=== PATIENT | female | born 1960 | race Caucasian/White ===

== ENCOUNTER 2022-07-21 12:24 | Emergency (ER) | payer OTHER ==
[~2022-07-21] VITALS: Ht 165.1 cm; Wt 87.4 kg
[2022-07-21 12:25] VITALS: BP 142/76
[2022-07-21] MEDS ORDERED: SYNT100T PO (12:31)
[2022-07-21] MEDS ORDERED: LIPI20TA PO (12:31)
[2022-07-21] MEDS ORDERED: ADVI200C8 PO (12:31)
[2022-07-21] MEDS ORDERED: ACETAMINOPHEN 500 MG TAB PO ONE (15:00)
[2022-07-21] MEDS ORDERED: IBUPROFEN 400MG TAB PO ONE (15:00)
[2022-07-21] MEDS ORDERED: PERC5TAB12 PO (15:12)
== END 2022-07-21 15:50 | disposition home or self-care (01) ==
LOC: M ED 12:24
DX: S42.252A Displaced fracture of greater tuberosity of left humerus, initial encounter for closed fracture (principal); W01.0XXA Fall on same level from slipping, tripping and stumbling without subsequent striking against object, initial encounter; E78.5 Hyperlipidemia, unspecified; Z88.9 Allergy status to unspecified drugs, medicaments and biological substances; Z79.02 Long term (current) use of antithrombotics/antiplatelets; Z79.899 Other long term (current) drug therapy; Y92.9 Unspecified place or not applicable; Y93.9 Activity, unspecified; Y99.9 Unspecified external cause status